=== PATIENT | female | born 1985 | race Two or more races ===

== ENCOUNTER 2018-09-18 10:28 | Day surgery (SDC) | payer OTHER ==
[~2018-09-18 10:28] MED LIST: Buffered Lidocaine 1% SYRIN* 1 ML/SYRINGE INTRADERM ONE; Dexamethasone IV* 4 MG/ML 1 ML (4 MG) IV SLOW PU ONE; Famotidine IV* 10 MG/ML 2 ML (20 mg) IV ONE; Lactated Ringers 1000 ML Bag* 1,000 ML IV SCH
[2018-09-18] MEDS ORDERED: Dexamethasone IV* 4 MG/ML 1 ML (4 MG) ONE (11:10)
[2018-09-18] MEDS ORDERED: Buffered Lidocaine 1% SYRIN* 1 ML/SYRINGE INTRADERM ONE (11:11)
[2018-09-18] MEDS ORDERED: Famotidine IV* 10 MG/ML 2 ML (20 mg) ONE (11:11)
[2018-09-18] MEDS ORDERED: Midazolam* 1 MG/ML 2 ML VIAL (2 MG) ONE (12:44)
[2018-09-18] MEDS ORDERED: fentaNYL* 50 MCG/ML 2 ML VIAL (100 MCG VIAL) ONE (12:44)
[2018-09-18] MEDS ORDERED: Oxymetazoline 0.05% NASAL SPR* 15 ML BTL ONE (12:51)
[2018-09-18] MEDS ORDERED: Lidocaine 4% TOPICAL* 50 ML TOP.SOLN ONE (12:51)
[2018-09-18] MEDS ORDERED: Bacitracin OINTMENT* 0.5% 0.5 oz TUBE ONE (12:51)
[2018-09-18] MEDS ORDERED: Lidocain 1% EPI 1:100,000 * 30 ML MDV ONE (12:51)
[2018-09-18] MEDS ORDERED: fentaNYL* 50 MCG/ML 2 ML VIAL (100 MCG VIAL) IV PRN (13:18)
[2018-09-18] MEDS ORDERED: DiMENhydriNATE IV* 50 MG/ML VIAL IV PUSH PRN (13:18)
[2018-09-18] MEDS ORDERED: Naloxone* 0.4 MG/ML 1 ML VIAL IV PRN (13:18)
[2018-09-18 13:51] VITALS: BP 117/82
--- NOTE | 2018-09-18 22:42 | OP ---
DATE OF OPERATION: 09/18/18 - SDS DATE OF : 87 SURGEON: Alexandro Banuelos MD PRE-OP DIAGNOSIS: Inferior turbinate hypertrophy. POST-OP DIAGNOSIS: Inferior turbinate hypertrophy. OPERATIVE PROCEDURE: Submucous resection of the inferior turbinates under general laryngeal mask anesthesia. COMPLICATIONS: None. DISPOSITION: Good. SPECIMENS: None. BLOOD LOSS: Minimum. DESCRIPTION OF PROCEDURE: The patient was taken to the operating room, placed in a supine position on the operating room table, general anesthesia was induced , and she was maintained with laryngeal mask airway anesthesia. Her noses were packed bilaterally with cottonoids impregnated with oxymetazoline and 4% lidocaine. After several minutes, these were removed and inferior turbinates were injected with 1% lidocaine with 1:100,000 epinephrine. An incision was made in the anterior inferior turbinate. The [place] elevator was used to elevate the mucosa and submucosa off of the bone. The turbinate debrider was inserted. The submucosa was debrided and the turbinate was outfractured and this was done bilaterally. The patient tolerated the procedure well, no complications, and transferred to the recovery room in stable condition. [id number] #: [id number]
== END 2018-09-18 14:53 | disposition home or self-care (01) ==
LOC: OR 10:28
PROVIDERS: ATTEND Otolaryngology
DX: J34.3 Hypertrophy of nasal turbinates (principal); R09.81 Nasal congestion
CPT/HCPCS: 81025; A9270-GY; J1100; J2250; J3010